=== PATIENT | male | born 1995 | race Two or more races ===

== ENCOUNTER 2017-03-22 09:54 | Emergency (ER) | payer BC, OTHER ==
[~2017-03-22] VITALS: Ht 157.5 cm; Wt 72.0 kg
[2017-03-22 10:07] VITALS: BP 114/74
[2017-03-22 11:26] LABS: BLOOD UREA NITROGEN 15 mg/dL (7-18)
[2017-03-22 11:30] LABS: ASPARTATE AMINO TRANSFERASE 20 U/L (15-37)
== END 2017-03-22 12:22 | disposition home or self-care (01) ==
LOC: ED 11:19
DX: R07.89 Other chest pain (principal)
CPT/HCPCS: 36415; 71020; 80053; 93005; 99285